=== PATIENT | male | born 1995 | race Caucasian/White ===

== ENCOUNTER 2017-04-01 20:10 | Emergency (ER) | payer BC ==
--- NOTE | 2017-04-01 20:58 | EDM.PDOC ---
ED HPI GENERAL MEDICAL PROBLEM - General Chief Complaint: Genitourinary Problem Stated Complaint: PT HAS INFECTION Time Seen by Provider: 04/01/17 20:35 Source of Information: Reports: Patient History Limitations: Reports: No Limitations - History of Present Illness INITIAL COMMENTS - FREE TEXT/NARRATIVE: History of present illness: 21-year-old male comes in complaining of concern of having an STI. Patient indicates that he has had burning urgency as well as discharge from his penis for the last day and a half and this was similar to a previous STI that he had experienced. Review of systems: As per history of present illness and below otherwise all systems reviewed and negative. Past medical history: As per history of present illness and as reviewed below otherwise noncontributory. Surgical history: As per history of present illness and as reviewed below otherwise noncontributory. Social history: No reported history of drug or alcohol abuse. Family history: As per history of present illness and as reviewed below otherwise noncontributory. Physical exam: HEENT: Atraumatic, normocephalic, pupils reactive, negative for conjunctival pallor or scleral icterus, mucous membranes moist, throat clear, neck supple, nontender, trachea midline. Lungs: Clear to auscultation, breath sounds equal bilaterally, chest nontender. Heart: S1S2, regular, negative for clicks, rubs, or JVD. Abdomen: Soft, nondistended, nontender. Negative for masses or hepatosplenomegaly. Negative for costovertebral tenderness. Pelvis: Stable nontender. Genitourinary: Deferred. Rectal: Deferred. Extremities: Atraumatic, negative for cords or calf pain. Neurovascular unremarkable. Neuro: Awake, alert, oriented. Cranial nerves II through XII unremarkable. Cerebellum unremarkable. Motor and sensory unremarkable throughout. Exam nonfocal. Global assessment is benign save the subjective complaint as noted in the history of present illness 30 urine obtained. Diagnostics: [Dirty UA] Therapeutics: [We'll give Rocephin and azithromycin per protocol] Impression: [Exposure to STI] Plan: [All primary care provider in clinic for results] Definitive disposition and diagnosis as appropriate pending reevaluation and review of above. - Related Data Allergies Allergy/AdvReac Type Severity Reaction Status Date / Time No Known Allergies Allergy Verified 04/01/17 20:23 Home Meds: Home Meds . [No Known Home Meds] 04/01/17 [History] Past Medical History - Past Health History Medical/Surgical History: Denies Medical/Surgical History Musculoskeletal History: Reports: None - Past Surgical History Other Musculoskeletal Surgeries/Procedures:: bilateral knee surgery (no radha/pins ) Social & Family History - Family History Family Medical History: Noncontributory - Tobacco Use Smoking Status *Q: Current Every Day Smoker Years of Tobacco use: 3 Packs/Tins Daily: 0.1 - Caffeine Use Caffeine Use: Reports: Soda Caffeine Use Comment: 1drink/day - Alcohol Use Days Per Week of Alcohol Use: 3 Number of Drinks Per Day: 2 Total Drinks Per Week: 6 - Recreational Drug Use Recreational Drug Use: No ED ROS GENERAL - Review of Systems Review Of Systems: See Below (History of present illness) ED EXAM, GENERAL - Physical Exam Exam: See Below (The history of present illness) Course - Vital Signs Last Recorded V/S: Last Vital Signs Temp 37.3 C 04/01/17 20:20 Pulse 78 04/01/17 20:20 Resp 18 04/01/17 20:20 BP 137/75 04/01/17 20:20 Pulse Ox 97 04/01/17 20:20 Departure - Departure Time of Disposition: 21:30 Disposition: Home, Self-Care 01 Clinical Impression: Sexually transmitted disease exposure - Discharge Information Forms: ED Department Discharge Additional Instructions: The following information is given to patients seen in the emergency department who are being discharged to home. This information is to outline your options for follow-up care. We provide all patients seen in our emergency department with a follow-up referral. The need for follow-up, as well as the timing and circumstances, are variable depending upon the specifics of your emergency department visit. If you don't have a primary care physician on staff, we will provide you with a referral. We always advise you to contact your personal physician following an emergency department visit to inform them of the circumstance of the visit and for follow-up with them and/or the need for any referrals to a consulting specialist. The emergency department will also refer you to a specialist when appropriate. This referral assures that you have the opportunity for follow-up care with a specialist. All of these measure are taken in an effort to provide you with optimal care, which includes your follow-up. Under all circumstances we always encourage you to contact your private physician who remains a resource for coordinating your care. When calling for follow-up care, please make the office aware that this follow-up is from your recent emergency room visit. If for any reason you are refused follow-up, please contact the [facility] Emergency Department at and asked to speak to the emergency department charge nurse. You've been provided medication for sexually-transmitted disease exposure please call the primary care provider for the results of the testing you're treated prophylactically so as not to have to wait for the results It is important to use protection such as condoms when being sexually active, as not all sexually-transmitted diseases can be treated by antibiotics Follow-up with PCP in 2-3 days Return to ED as needed as discussed
[2017-04-01] MEDS ORDERED: cefTRIAXone 250 MG Vial IM ONE (21:16)
[2017-04-01] MEDS ORDERED: Lidocaine 1% 2 ML ONE (21:24)
[2017-04-01] MEDS ORDERED: Azithromycin 250 MG Tab PO ONE (21:30)
[2017-04-01 21:45] VITALS: BP 122/72
== END 2017-04-01 21:41 | disposition home or self-care (01) ==
LOC: MW.ED 20:10
DX: Z20.2 Contact with and (suspected) exposure to infections with a predominantly sexual mode of transmission (principal); F17.210 Nicotine dependence, cigarettes, uncomplicated
CPT/HCPCS: 87491; 87591; 96372; 99283; A9270; J0696; 99282

== ENCOUNTER 2017-09-07 17:48 | Emergency (ER) | payer BC ==
[2017-09-07] MEDS ORDERED: Azithromycin 250 MG Tab PO ONE (18:16)
[2017-09-07] MEDS ORDERED: cefTRIAXone 1,000 MG in Lidocaine 1% 4 ML IM ONE (18:16)
[2017-09-07 18:20] VITALS: BP 141/70
--- NOTE | 2017-09-07 18:33 | EDM.PDOC ---
ED HPI GENERAL MEDICAL PROBLEM - General Chief Complaint: Genitourinary Problem Stated Complaint: DISCOMFORT Time Seen by Provider: 09/07/17 17:51 Source of Information: Reports: Patient History Limitations: Reports: No Limitations - History of Present Illness INITIAL COMMENTS - FREE TEXT/NARRATIVE: History of present illness: []Patient states he is having penile discharge is worried he has an STD. Review of systems: As per history of present illness and below otherwise all systems reviewed and negative. Past medical history: As per history of present illness and as reviewed below otherwise noncontributory. Surgical history: As per history of present illness and as reviewed below otherwise noncontributory. Social history: No reported history of drug or alcohol abuse. Family history: As per history of present illness and as reviewed below otherwise noncontributory. Physical exam: General: Well developed, well nourished in NAD HEENT: Atraumatic, normocephalic, pupils reactive, negative for conjunctival pallor or scleral icterus, mucous membranes moist, throat clear, neck supple, nontender, trachea midline. Lungs: Clear to auscultation, breath sounds equal bilaterally, chest nontender. Heart: S1S2, regular, negative for clicks, rubs, or JVD. Abdomen: Soft, nondistended, nontender. Negative for masses or hepatosplenomegaly. Negative for costovertebral tenderness. Pelvis: Stable nontender. Genitourinary: Deferred. Rectal: Deferred. Extremities: Atraumatic, negative for cords or calf pain. Neurovascular unremarkable. Neuro: Awake, alert, oriented. Cranial nerves II through XII unremarkable. Cerebellum unremarkable. Motor and sensory unremarkable throughout. Exam nonfocal. Diagnostics: []GC chlamydia sent Therapeutics: []Ceftriaxone and Zithromax given Impression: []Clinical STD Plan: []Follow-up with primary care contact partners return if symptoms worsen Definitive disposition and diagnosis as appropriate pending reevaluation and review of above. - Related Data Allergies Allergy/AdvReac Type Severity Reaction Status Date / Time No Known Allergies Allergy Verified 09/07/17 18:20 Home Meds: Home Meds Omeprazole Magnesium [Prilosec Otc] 20 mg PO DAILY 09/07/17 [History] Past Medical History - Past Health History Medical/Surgical History: Denies Medical/Surgical History Gastrointestinal History: Reports: GERD Musculoskeletal History: Reports: None - Past Surgical History Musculoskeletal Surgical History: Reports: Arthroscopic Knee, Arthroscopic Procedure Other Musculoskeletal Surgeries/Procedures:: bilateral knee surgery (no radha/pins ) Social & Family History - Family History Family Medical History: Noncontributory - Tobacco Use Smoking Status *Q: Current Every Day Smoker Years of Tobacco use: 3 Packs/Tins Daily: 0.3 - Caffeine Use Caffeine Use: Reports: None Caffeine Use Comment: 1drink/day - Alcohol Use Days Per Week of Alcohol Use: 4 Number of Drinks Per Day: 2 Total Drinks Per Week: 8 - Recreational Drug Use Recreational Drug Use: No ED ROS GENERAL - Review of Systems Review Of Systems: See Below (See history of present illness) ED EXAM, RENAL/ - Physical Exam Exam: See Below (See history of present illness) Course - Vital Signs Last Recorded V/S: Last Vital Signs Temp 98.8 F 09/07/17 18:17 Pulse 95 09/07/17 18:17 Resp 12 09/07/17 18:17 BP 141/70 H 09/07/17 18:17 Pulse Ox 95 09/07/17 18:17 - Orders/Labs/Meds Orders: Active Orders 24 hr Category Date Time Status CHLAMYDIA AND GONORRHEA BY [facility] Stat Lab 09/07/17 18:15 Ordered Meds: Medications Discontinued Medications Generic Name Dose Route Start Last Admin Trade Name Tahira PRN Reason Stop Dose Admin Azithromycin 1,000 mg 09/07/17 18:16 Zithromax PO 09/07/17 18:17 ONETIME ONE Ceftriaxone Sodium 1,000 mg/ 4 mls @ 4 mls/sec 09/07/17 18:16 Lidocaine HCl IM 09/07/17 18:17 ONETIME ONE Departure - Departure Time of Disposition: 18:32 Disposition: Home, Self-Care 01 Condition: Good Clinical Impression: STD (male) - Discharge Information Referrals: PCP,None [Primary Care Provider] - Leslie Marte MD [Resident] - Additional Instructions: The following information is given to patients seen in the emergency department who are being discharged to home. This information is to outline your options for follow-up care. We provide all patients seen in our emergency department with a follow-up referral. The need for follow-up, as well as the timing and circumstances, are variable depending upon the specifics of your emergency department visit. If you don't have a primary care physician on staff, we will provide you with a referral. We always advise you to contact your personal physician following an emergency department visit to inform them of the circumstance of the visit and for follow-up with them and/or the need for any referrals to a consulting specialist. The emergency department will also refer you to a specialist when appropriate. This referral assures that you have the opportunity for follow-up care with a specialist. All of these measure are taken in an effort to provide you with optimal care, which includes your follow-up. Under all circumstances we always encourage you to contact your private physician who remains a resource for coordinating your care. When calling for follow-up care, please make the office aware that this follow-up is from your recent emergency room visit. If for any reason you are refused follow-up, please contact the [facility] Emergency Department at and asked to speak to the emergency department charge nurse. Contact her partners to inform them of possible STD, follow-up with your primary care physician return if symptoms worsen or change. - My Orders Last 24 Hours: My Active Orders 09/07/17 18:15 CHLAMYDIA AND GONORRHEA BY [facility] Stat - Assessment/Plan Last 24 Hours: My Active Orders 09/07/17 18:15 CHLAMYDIA AND GONORRHEA BY [facility] Stat
== END 2017-09-07 19:05 | disposition home or self-care (01) ==
LOC: MW.ED 17:48
DX: A64 Unspecified sexually transmitted disease (principal); F17.210 Nicotine dependence, cigarettes, uncomplicated; K21.9 Gastro-esophageal reflux disease without esophagitis
CPT/HCPCS: 87491; 87591; 96372; 99283; A9270; J0696; 99282

== ENCOUNTER 2019-05-09 14:52 | Emergency (ER) | payer BC ==
[2019-05-09] MEDS ORDERED: cefTRIAXone 500 MG in Lidocaine 1% 1 ML IM ONE (15:11)
[2019-05-09] MEDS ORDERED: Azithromycin 250 MG Tab PO ONE (15:11)
--- NOTE | 2019-05-09 15:13 | EDM.PDOC ---
ED HPI GENERAL MEDICAL PROBLEM - General Chief Complaint: Genitourinary Problem Stated Complaint: SPOKE TO NURSE Time Seen by Provider: 05/09/19 15:00 Source of Information: Reports: Patient History Limitations: Reports: No Limitations - History of Present Illness INITIAL COMMENTS - FREE TEXT/NARRATIVE: History of present illness: []Patient states he feels like he "almost has an STD" patient states he has burning with urination but no penile discharge. Residuals. He has had an STD in the past. Review of systems: As per history of present illness and below otherwise all systems reviewed and negative. Past medical history: As per history of present illness and as reviewed below otherwise noncontributory. Surgical history: As per history of present illness and as reviewed below otherwise noncontributory. Social history: No reported history of drug or alcohol abuse. Family history: As per history of present illness and as reviewed below otherwise noncontributory. Physical exam: General: Well developed, well nourished in NAD HEENT: Atraumatic, normocephalic, pupils reactive, negative for conjunctival pallor or scleral icterus, mucous membranes moist, throat clear, neck supple, nontender, trachea midline. Lungs: Clear to auscultation, breath sounds equal bilaterally, chest nontender. Heart: S1S2, regular, negative for clicks, rubs, or JVD. Abdomen: NABS, Soft, nondistended, nontender. Negative for masses or hepatosplenomegaly. Negative for costovertebral tenderness. Pelvis: Stable nontender. Genitourinary: Deferred. Rectal: Deferred. Extremities: Atraumatic, negative for cords or calf pain. Neurovascular unremarkable. Neuro: Awake, alert, oriented. Cranial nerves II through XII unremarkable. Cerebellum unremarkable. Motor and sensory unremarkable throughout. Exam nonfocal. Skin:warm and dry Diagnostics: GC, chlamydia on the UA culture Therapeutics: Zithromax, ceftriaxone ED Course: Stable Impression: Suspected STD Prescriptions: None Plan: Take meds as directed, follow up with your primary care physician, return to ER if symptoms worsen or change. Definitive disposition and diagnosis as appropriate pending reevaluation and review of above. - Related Data Allergies Allergy/AdvReac Type Severity Reaction Status Date / Time No Known Allergies Allergy Verified 05/09/19 15:10 Home Meds: Home Meds . [No Known Home Meds] 05/09/19 [History] Past Medical History - Past Health History Medical/Surgical History: Denies Medical/Surgical History Gastrointestinal History: Reports: GERD Musculoskeletal History: Reports: None - Past Surgical History Musculoskeletal Surgical History: Reports: Arthroscopic Knee, Arthroscopic Procedure Other Musculoskeletal Surgeries/Procedures:: bilateral knee surgery (no radha/pins ) Social & Family History - Family History Family Medical History: Noncontributory - Caffeine Use Caffeine Use: Reports: None Caffeine Use Comment: 1drink/day ED ROS GENERAL - Review of Systems Review Of Systems: See Below ED EXAM, RENAL/ - Physical Exam Exam: See Below Course - Vital Signs Last Recorded V/S: Last Vital Signs Temp 97.6 F 05/09/19 15:07 Pulse 80 05/09/19 15:07 Resp 18 05/09/19 15:07 BP 131/82 05/09/19 15:07 Pulse Ox 98 05/09/19 15:07 - Orders/Labs/Meds Orders: Active Orders 24 hr Category Date Time Status CHLAMYDIA AND GONORRHEA BY [facility] Stat Lab 05/09/19 15:16 Received UA W/MICROSCOPIC [URIN] Stat Lab 05/09/19 15:12 Ordered Meds: Medications Discontinued Medications Generic Name Dose Route Start Last Admin Trade Name Freq PRN Reason Stop Dose Admin Azithromycin 1,000 mg 05/09/19 15:11 05/09/19 15:57 Zithromax PO 05/09/19 15:12 1,000 mg Q24H ONE Administration Ceftriaxone Sodium 500 mg/ 1 mls @ 1 mls/sec 05/09/19 15:11 05/09/19 15:57 Lidocaine HCl IM 05/09/19 15:12 1 mls/sec ONETIME ONE Administration Departure - Departure Time of Disposition: 15:22 Disposition: Home, Self-Care 01 Condition: Good Clinical Impression: Concern about STD in male without diagnosis Clinical Impression: (Ruled Out): STD (male) - Discharge Information *PRESCRIPTION DRUG MONITORING PROGRAM REVIEWED*: Not Applicable *COPY OF PRESCRIPTION DRUG MONITORING REPORT IN PATIENT AWA: Not Applicable Instructions: Preventing Sexually Transmitted Infections, Adult Referrals: PCP,None [Primary Care Provider] - Forms: ED Department Discharge Additional Instructions: The following information is given to patients seen in the emergency department who are being discharged to home. This information is to outline your options for follow-up care. We provide all patients seen in our emergency department with a follow-up referral. The need for follow-up, as well as the timing and circumstances, are variable depending upon the specifics of your emergency department visit. If you don't have a primary care physician on staff, we will provide you with a referral. We always advise you to contact your personal physician following an emergency department visit to inform them of the circumstance of the visit and for follow-up with them and/or the need for any referrals to a consulting specialist. The emergency department will also refer you to a specialist when appropriate. This referral assures that you have the opportunity for follow-up care with a specialist. All of these measure are taken in an effort to provide you with optimal care, which includes your follow-up. Under all circumstances we always encourage you to contact your private physician who remains a resource for coordinating your care. When calling for follow-up care, please make the office aware that this follow-up is from your recent emergency room visit. If for any reason you are refused follow-up, please contact the [facility] Emergency Department at and asked to speak to the emergency department charge nurse. Take meds as directed, follow up with your primary care physician, return to ER if symptoms worsen or change. - My Orders Last 24 Hours: My Active Orders 05/09/19 15:12 UA W/MICROSCOPIC [URIN] Stat 05/09/19 15:16 CHLAMYDIA AND GONORRHEA BY [facility] Stat - Assessment/Plan Last 24 Hours: My Active Orders 05/09/19 15:12 UA W/MICROSCOPIC [URIN] Stat 05/09/19 15:16 CHLAMYDIA AND GONORRHEA BY [facility] Stat
[2019-05-09 15:56] VITALS: BP 131/82; PULSE 80
== END 2019-05-09 16:16 | disposition home or self-care (01) ==
LOC: MW.ED 14:52
DX: Z20.2 Contact with and (suspected) exposure to infections with a predominantly sexual mode of transmission (principal)
CPT/HCPCS: 87491; 87591; 96372; 99283; A9270; J0696; J2001; 99282

== ENCOUNTER 2019-05-14 16:09 | Emergency (ER) | payer BC ==
--- NOTE | 2019-05-14 16:14 | EDM.PDOC ---
ED HPI GENERAL MEDICAL PROBLEM - General Chief Complaint: Genitourinary Problem Stated Complaint: URINARY DISCOMFORT Time Seen by Provider: 05/14/19 16:13 Source of Information: Reports: Patient History Limitations: Reports: No Limitations - History of Present Illness INITIAL COMMENTS - FREE TEXT/NARRATIVE: History of present illness: []Patient was seen here on May 09 with burning with urination and penile discharge, cultures for GC and chlamydia were taken and patient was treated with ceftriaxone and Zithromax. Results were negative but patient still has symptoms. Review of systems: As per history of present illness and below otherwise all systems reviewed and negative. Past medical history: As per history of present illness and as reviewed below otherwise noncontributory. Surgical history: As per history of present illness and as reviewed below otherwise noncontributory. Social history: No reported history of drug or alcohol abuse. Family history: As per history of present illness and as reviewed below otherwise noncontributory. Physical exam: General: Well developed, well nourished in NAD HEENT: Atraumatic, normocephalic, pupils reactive, negative for conjunctival pallor or scleral icterus, mucous membranes moist, throat clear, neck supple, nontender, trachea midline. Lungs: Clear to auscultation, breath sounds equal bilaterally, chest nontender. Heart: S1S2, regular, negative for clicks, rubs, or JVD. Abdomen: NABS, Soft, nondistended, nontender. Negative for masses or hepatosplenomegaly. Negative for costovertebral tenderness. Pelvis: Stable nontender. Genitourinary: Circumcised male there is no erythema or purulent drainage from the urethra or lesions on the glans or shaft. Rectal: Deferred. Extremities: Atraumatic, negative for cords or calf pain. Neurovascular unremarkable. Neuro: Awake, alert, oriented. Cranial nerves II through XII unremarkable. Cerebellum unremarkable. Motor and sensory unremarkable throughout. Exam nonfocal. Skin:warm and dry Diagnostics: UA, culture, treponema pallidum AB Therapeutics: None ED Course: stable Impression: dysuria Prescriptions: None Plan: Follow-up with urology Definitive disposition and diagnosis as appropriate pending reevaluation and review of above. Penis Pain Score (Numeric/FACES): 1 - Related Data Allergies Allergy/AdvReac Type Severity Reaction Status Date / Time No Known Allergies Allergy Verified 05/09/19 15:10 Home Meds: Home Meds . [No Known Home Meds] 05/09/19 [History] Past Medical History - Past Health History Medical/Surgical History: Denies Medical/Surgical History HEENT History: Reports: None Cardiovascular History: Reports: None Respiratory History: Reports: None Gastrointestinal History: Reports: GERD Genitourinary History: Reports: None Musculoskeletal History: Reports: None Neurological History: Reports: None Psychiatric History: Reports: None Endocrine/Metabolic History: Reports: None Hematologic History: Reports: None Immunologic History: Reports: None Oncologic (Cancer) History: Reports: None Dermatologic History: Reports: None - Infectious Disease History Infectious Disease History: Reports: None - Past Surgical History Musculoskeletal Surgical History: Reports: Arthroscopic Knee, Arthroscopic Procedure Other Musculoskeletal Surgeries/Procedures:: bilateral knee surgery (no radha/pins ) Social & Family History - Family History Family Medical History: Noncontributory - Caffeine Use Caffeine Use: Reports: None Caffeine Use Comment: 1drink/day ED ROS GENERAL - Review of Systems Review Of Systems: See Below ED EXAM, RENAL/ - Physical Exam Exam: See Below Course - Vital Signs Last Recorded V/S: Last Vital Signs Temp 97.8 F 05/14/19 16:34 Pulse 97 05/14/19 16:34 Resp 16 05/14/19 16:34 BP 143/69 H 05/14/19 16:34 Pulse Ox 97 05/14/19 16:34 - Orders/Labs/Meds Orders: Active Orders 24 hr Category Date Time Status CULTURE URINE [RM] Routine Lab 05/14/19 16:40 Received TREPONEMA PALLIDUM ANTIBODIES [REF] Routine Lab 05/14/19 17:05 Received Labs: Laboratory Tests 05/14/19 Range/Units 16:40 Urine Color YELLOW Urine Appearance CLEAR Urine pH 7.0 (5.0-8.0) Ur Specific [place] 1.010 (1.001-1.035) Urine Protein NEGATIVE (NEGATIVE) mg/dL Urine Glucose (UA) NEGATIVE (NEGATIVE) mg/dL Urine Ketones NEGATIVE (NEGATIVE) mg/dL Urine Occult Blood NEGATIVE (NEGATIVE) Urine Nitrite NEGATIVE (NEGATIVE) Urine Bilirubin NEGATIVE (NEGATIVE) Urine Urobilinogen 0.2 (<2.0) EU/dL Ur Leukocyte Esterase NEGATIVE (NEGATIVE) Urine RBC 0-1 (0-2/HPF) Urine WBC 0-2 (0-5/HPF) Ur Epithelial Cells OCCASIONAL (NONE-FEW) Urine Bacteria RARE (NEGATIVE) Departure - Departure Time of Disposition: 17:18 Disposition: Home, Self-Care 01 Condition: Good Clinical Impression: Urethritis - Discharge Information *PRESCRIPTION DRUG MONITORING PROGRAM REVIEWED*: Not Applicable *COPY OF PRESCRIPTION DRUG MONITORING REPORT IN PATIENT AWA: Not Applicable Referrals: PCP,None [Primary Care Provider] - Forms: ED Department Discharge Additional Instructions: The following information is given to patients seen in the emergency department who are being discharged to home. This information is to outline your options for follow-up care. We provide all patients seen in our emergency department with a follow-up referral. The need for follow-up, as well as the timing and circumstances, are variable depending upon the specifics of your emergency department visit. If you don't have a primary care physician on staff, we will provide you with a referral. We always advise you to contact your personal physician following an emergency department visit to inform them of the circumstance of the visit and for follow-up with them and/or the need for any referrals to a consulting specialist. The emergency department will also refer you to a specialist when appropriate. This referral assures that you have the opportunity for follow-up care with a specialist. All of these measure are taken in an effort to provide you with optimal care, which includes your follow-up. Under all circumstances we always encourage you to contact your private physician who remains a resource for coordinating your care. When calling for follow-up care, please make the office aware that this follow-up is from your recent emergency room visit. If for any reason you are refused follow-up, please contact the [facility] Department at and asked to speak to the emergency department charge nurse. Take meds as directed, follow up with your primary care physician, return to ER if symptoms worsen or change. [facility] - Urology [address] [place] [id number] - My Orders Last 24 Hours: My Active Orders 05/14/19 16:40 CULTURE URINE [RM] Routine 05/14/19 17:05 TREPONEMA PALLIDUM ANTIBODIES [REF] Routine - Assessment/Plan Last 24 Hours: My Active Orders 05/14/19 16:40 CULTURE URINE [RM] Routine 05/14/19 17:05 TREPONEMA PALLIDUM ANTIBODIES [REF] Routine
[2019-05-14 17:31] VITALS: BP 154/101; PULSE 77
== END 2019-05-14 17:26 | disposition home or self-care (01) ==
LOC: MW.ED 16:09
DX: N34.2 Other urethritis (principal)
CPT/HCPCS: 81001; 86780; 87086; 99283